=== PATIENT | male | born 1935 | race Caucasian/White ===

== ENCOUNTER 2023-10-10 06:58 | Observation (INO) | payer MEDICARE, OTHER ==
[~2023-10-10 06:58] MED LIST: CEFAZOLIN 2 GM VIAL ONE; Dexamethasone 4 mg/ml Vial ONE; Lidocaine 1% PF 5 ML VIAL ONE; Mupirocin 2% Ointment 22 GM Tube ONE; Ondansetron PF 4 MG/2 ML Vial ONE; PROPOFOL 40 ML ONE; Phenylephrine 40 MG/NS 250 ML 250 ML ONE; Rocuronium Bromide 10 MG/ML (10ML VIAL) ONE; SUGAMMADEX SODIUM 200 MG/2 ML VIAL ONE; fentaNYL 50 mcg/mL 1 mL Vial ONE
[2023-10-10] MEDS ORDERED: PHENYLEPHRINE-NS 100 MCG/ML 10 ML SYRINGE ONE (07:07)
[2023-10-10] MEDS ORDERED: Rocuronium Bromide 10 MG/ML (10ML VIAL) ONE (07:07)
[2023-10-10] MEDS ORDERED: Lidocaine 1% w/Epinephrine 1:100K 20 ML VIAL ONE (07:20)
[2023-10-10] MEDS ORDERED: CEFAZOLIN 2 GM VIAL ONE (07:20)
[2023-10-10] MEDS ORDERED: Glycopyrrolate 0.2 MG/ML 5 ML SYRINGE ONE (07:26)
[2023-10-10] MEDS ORDERED: Vasopressin 20 UNITS/ML VIAL ONE ×2 (07:48)
[2023-10-10] MEDS ORDERED: ePHEDrine Sulfate 50 MG/10 ML VIAL ONE (07:56)
[2023-10-10] MEDS ORDERED: Ondansetron PF 4 MG/2 ML Vial ONE (11:20)
[2023-10-10] MEDS ORDERED: fentaNYL 50 mcg/mL 1 mL Vial ONE (16:46)
[2023-10-10] MEDS ORDERED: HYDROcodone/Acetaminophen 5/325 mg Tablet PO PRN (19:59)
[2023-10-10 20:14] VITALS: BMI 25.6
[2023-10-10] MEDS: Acetaminophen 325 MG TAB PO SCH (21:27)
[2023-10-10] MEDS: Mupirocin 2% Ointment 22 GM Tube TOP SCH (22:24)
[2023-10-10] MEDS ORDERED: Ibuprofen 400 MG TAB PO SCH (23:00)
[2023-10-10] MEDS: Ibuprofen 400 MG TAB PO SCH (23:51)
[2023-10-11] MEDS: Mupirocin 2% Ointment 22 GM Tube TOP SCH (08:04)
[2023-10-11 08:37] VITALS: BP 160/70; TEMP 98.3
== END 2023-10-11 10:20 | disposition home or self-care (01) ==
LOC: CSHSDC 06:58 → CSHTELE 07:13
PROVIDERS: ADMIT Otolaryngology; ATTEND Otolaryngology
PROC: 0CB90ZZ Excision of Left Parotid Gland, Open Approach (ICD-10-PCS; principal; 2023-10-10)
PROC: 0HX1XZZ Transfer Face Skin, External Approach (ICD-10-PCS; 2023-10-10)
DX: C44.320 Squamous cell carcinoma of skin of unspecified parts of face (principal); L85.8 Other specified epidermal thickening; K11.8 Other diseases of salivary glands; I10 Essential (primary) hypertension; Z88.0 Allergy status to penicillin; Z88.8 Allergy status to other drugs, medicaments and biological substances; Z79.899 Other long term (current) drug therapy
CPT/HCPCS: 14040; 42415; J3010; 88305; 88312; 88331; 88332; J1100; J2405; J2704